=== PATIENT | male | born 1990 | race Caucasian/White ===

== ENCOUNTER 2016-02-17 13:55 | Outpatient (CLI) | payer OTHER ==
[~2016-02-17] VITALS: Ht 180.3 cm; Wt 65.9 kg
[~2016-02-17 13:55] MED LIST: IMURAN 50MG TAB50 MG PO; MULTI VITAMINS1 TAB PO; PREDNISONE10 MG PO; PRIL40 PO; REMICADE V100 MG/VIA IV; VITAMIN D32000 IU PO; VITRON-C PO
[2016-02-17 14:25] LABS: HEMATOCRIT 44.4 % (42.0-52.0); HEMOGLOBIN 15.2 g/dl (13.5-18.0); MEAN CELL VOLUME 89 fl (80.0-100.0); MEAN CORPUSCULAR HEMOGLOBIN 31 pg (27.0-31.0); MEAN CORPUSCULAR HGB CONC 34 g/dl (33.0-37.0); MEAN PLATELET VOLUME 11.9 fl (7.4-10.4); PLATELET COUNT 203 K/mm3 (130-400); RED BLOOD COUNT 4.98 M/mm3 (4.20-5.60); REDCELL DISTRIBUTION WIDTH-CV 12.7 % (11.5-14.5); WHITE BLOOD COUNT 6.7 K/mm3 (4.8-10.8)
[2016-02-17 14:52] LABS: ADJUSTED CALCIUM 8.9 mg/dL (8.4-10.2); ALBUMIN 4.6 gm/dL (3.5-5.0); CALCIUM 9.4 mg/dL (8.4-10.2); CREATININE, serum 0.98 mg/dL (0.66-1.25); POTASSIUM 4.1 mmol/L (3.4-5.0); TOTAL PROTEIN 8.3 gm/dL (6.4-8.2)
[2016-02-17 15:33] VITALS: BP 115/52; PULSE 68; TEMP 97.6
[2016-02-17 16:10] VITALS: BP 110/62; PULSE 78; TEMP 98.3
[2016-02-17 16:50] VITALS: BP 111/42; PULSE 84; TEMP 97.8
[2016-02-17 17:36] VITALS: BP 117/52; PULSE 86; TEMP 98.3
== END 2016-02-17 17:41 | disposition home or self-care (01) ==
LOC: EUO 13:55
PROVIDERS: Internal Medicine Gastroenterology
DX: K50.90 Crohn's disease, unspecified, without complications (principal)
CPT/HCPCS: J1200; J2930; J7050

== ENCOUNTER 2016-04-13 14:29 | Outpatient (CLI) | payer OTHER ==
[~2016-04-13] VITALS: Ht 180.3 cm; Wt 65.9 kg
[2016-04-13 14:55] LABS: HEMATOCRIT 41.9 % (42.0-52.0); HEMOGLOBIN 14.3 g/dl (13.5-18.0); MEAN CELL VOLUME 89 fl (80.0-100.0); MEAN CORPUSCULAR HEMOGLOBIN 30 pg (27.0-31.0); MEAN CORPUSCULAR HGB CONC 34 g/dl (33.0-37.0); MEAN PLATELET VOLUME 11.8 fl (7.4-10.4); PLATELET COUNT 242 K/mm3 (130-400); RED BLOOD COUNT 4.71 M/mm3 (4.20-5.60); REDCELL DISTRIBUTION WIDTH-CV 12.9 % (11.5-14.5); WHITE BLOOD COUNT 6.1 K/mm3 (4.8-10.8)
[2016-04-13 15:06] LABS: ADJUSTED CALCIUM 9.1 mg/dL (8.4-10.2); BILIRUBIN,TOTAL 0.7 mg/dL (0.0-1.0); CALCIUM 9.1 mg/dL (8.4-10.2); CREATININE, serum 0.87 mg/dL (0.66-1.25); POTASSIUM 4.2 mmol/L (3.4-5.0); TOTAL PROTEIN 7.4 gm/dL (6.4-8.2)
[2016-04-13 16:00] VITALS: BP 99/49; PULSE 67; TEMP 97.9
[2016-04-13 16:42] VITALS: BP 110/53; PULSE 66; TEMP 97.8
[2016-04-13 17:00] VITALS: BP 107/52; PULSE 68; TEMP 98.3
[2016-04-13 18:01] VITALS: BP 115/51; PULSE 76; TEMP 98.3
== END 2016-04-13 18:04 | disposition home or self-care (01) ==
LOC: EUO 14:29
PROVIDERS: Physician Assistant
DX: K50.90 Crohn's disease, unspecified, without complications (principal)
CPT/HCPCS: J1200; J2930; J7050

== ENCOUNTER 2016-06-08 14:24 | Outpatient (CLI) | payer OTHER ==
[~2016-06-08] VITALS: Ht 180.3 cm; Wt 65.9 kg
[2016-06-08 15:41] LABS: HEMATOCRIT 42.8 % (42.0-52.0); HEMOGLOBIN 14.8 g/dl (13.5-18.0); MEAN CELL VOLUME 90 fl (80.0-100.0); MEAN CORPUSCULAR HEMOGLOBIN 31 pg (27.0-31.0); MEAN CORPUSCULAR HGB CONC 35 g/dl (33.0-37.0); MEAN PLATELET VOLUME 11.6 fl (7.4-10.4); PLATELET COUNT 208 K/mm3 (130-400); RED BLOOD COUNT 4.77 M/mm3 (4.20-5.60); REDCELL DISTRIBUTION WIDTH-CV 13.1 % (11.5-14.5); WHITE BLOOD COUNT 6.1 K/mm3 (4.8-10.8)
[2016-06-08 15:54] LABS: ADJUSTED CALCIUM 9.1 mg/dL (8.4-10.2); ALBUMIN 3.8 gm/dL (3.5-5.0); BILIRUBIN,TOTAL 0.6 mg/dL (0.0-1.0); CALCIUM 8.9 mg/dL (8.4-10.2); CREATININE, serum 1.03 mg/dL (0.66-1.25); POTASSIUM 4.2 mmol/L (3.4-5.0); TOTAL PROTEIN 6.6 gm/dL (6.4-8.2)
[2016-06-08 16:45] VITALS: BP 115/68; PULSE 72; TEMP 97.2
[2016-06-08 17:15] VITALS: BP 107/74; PULSE 69; TEMP 97.8
[2016-06-08 17:45] VITALS: BP 111/52; PULSE 73; TEMP 97.9
[2016-06-08 18:15] VITALS: BP 109/60; PULSE 70; TEMP 98.3
[2016-06-08 19:00] VITALS: BP 108/56; PULSE 82; TEMP 98.6
== END 2016-06-08 19:03 | disposition home or self-care (01) ==
LOC: EUO 14:24
PROVIDERS: Internal Medicine Gastroenterology
DX: K50.90 Crohn's disease, unspecified, without complications (principal)
CPT/HCPCS: J1200; J2930; J7050

== ENCOUNTER 2016-08-03 14:01 | Outpatient (CLI) | payer OTHER ==
[2016-08-03 14:25] LABS: HEMATOCRIT 41.3 % (42.0-52.0); HEMOGLOBIN 14.2 g/dl (13.5-18.0); MEAN CELL VOLUME 91 fl (80.0-100.0); MEAN CORPUSCULAR HEMOGLOBIN 31 pg (27.0-31.0); MEAN CORPUSCULAR HGB CONC 34 g/dl (33.0-37.0); MEAN PLATELET VOLUME 11.7 fl (7.4-10.4); PLATELET COUNT 195 K/mm3 (130-400); RED BLOOD COUNT 4.54 M/mm3 (4.20-5.60); REDCELL DISTRIBUTION WIDTH-CV 13.4 % (11.5-14.5); WHITE BLOOD COUNT 5.1 K/mm3 (4.8-10.8)
[2016-08-03 14:41] LABS: ADJUSTED CALCIUM 8.8 mg/dL (8.4-10.2); BILIRUBIN,TOTAL 0.7 mg/dL (0.0-1.0); CALCIUM 8.8 mg/dL (8.4-10.2); CREATININE, serum 0.88 mg/dL (0.66-1.25); POTASSIUM 4.3 mmol/L (3.4-5.0)
[2016-08-03 15:10] VITALS: BP 120/52; PULSE 70; TEMP 97.5
[2016-08-03 15:40] VITALS: BP 105/50; PULSE 66; TEMP 98.7
[2016-08-03 16:45] VITALS: BP 112/49; PULSE 78; TEMP 97.9
[2016-08-03 17:14] VITALS: BP 99/86; PULSE 69; TEMP 97.6
== END 2016-08-03 17:15 | disposition home or self-care (01) ==
LOC: EUO 14:01
PROVIDERS: Physician Assistant
DX: K50.90 Crohn's disease, unspecified, without complications (principal); Z79.899 Other long term (current) drug therapy
CPT/HCPCS: J1200; J1745; J2930; J7050